=== PATIENT | female | born 1945 ===

== ENCOUNTER 2021-09-21 07:30 | Inpatient (IN) ==
[~2021-09-21 07:30] MED LIST: Buffered Lidocaine 1% SYRIN 1 ml INTRADERM ONE; Famotidine IV 10 MG/ML 2 ml VIAL (20 mg) IV ONE; Lactated Ringers 1000 ml BAG 1,000 ML IV SCH
[2021-10-31] MEDS ORDERED: ceFAZolin 1 GM ADVAN 1 GM ADDV.VIAL IVPB ONE (07:07)
[2021-10-31] MEDS ORDERED: Lidocaine 2.5%/Prilocain 2.5% 5 GM TUBE ONE (07:08)
[2021-10-31] MEDS ORDERED: Midazolam 2 mg/2 ml VIAL 1 mg/ml 2 ml VIAL (2 mg) ONE (09:09)
[2021-10-31] MEDS ORDERED: fentaNYL 250 mcg/5 ml 50 MCG/ML 5 ml VIAL (250 MCG) ONE (09:10)
[2021-10-31] MEDS ORDERED: Rocuronium 50 mg VIAL 10 mg/ml 5 ml VIAL (50 mg) ONE (09:10)
[2021-10-31] MEDS ORDERED: Lidocaine 2% PF 5 ML VIAL ONE (09:10)
[2021-10-31] MEDS ORDERED: Propofol 10 MG/ML 20 ML BTL ONE (09:10)
[2021-10-31] MEDS ORDERED: Heparin 5000 UNITS/ML 1 mL VIAL ONE (10:01)
[2021-10-31] MEDS ORDERED: Bupivacaine 0.5% SDV PF 30ML VIAL ONE ×2 (10:25→10:49)
[2021-10-31] MEDS ORDERED: Albuterol 2.5mg/3 ml (0.083%) NEB.SOLN INH ONE ×2 (10:37→10:53)
[2021-10-31] MEDS ORDERED: ISOSULFAN BLUE 1% 5 ML VIAL 10 MG/ML SUBCUT ONE (10:49)
[2021-10-31] MEDS ORDERED: HYDROmorphone 0.5 MG/0.5 ML SYRINGE ONE (12:34)
[2021-10-31] MEDS ORDERED: fentaNYL 100 mcg/2 ml 50 MCG/ML VIAL IV PRN (13:46)
[2021-10-31] MEDS ORDERED: Acetaminophen IV 1 GM/100ML 100 ML IV ONE (13:46)
[2021-10-31] MEDS ORDERED: oxyCODONE/Acetamin 5/325 mg TAB PO PRN (13:46)
[2021-10-31] MEDS ORDERED: Ondansetron 4 mg VIAL 2 MG/ML 2 ml VIAL IV PRN (13:46)
[2021-10-31] MEDS ORDERED: Albuterol HFA INHALER 8 gm MDI INH PRN (15:17)
[2021-10-31] MEDS ORDERED: HYDROcodone/ACETAMIN 5/325 mg TAB PO PRN (15:27)
[2021-10-31] MEDS ORDERED: Benzocaine/Menthol LOZ PO PRN (15:28)
[2021-10-31] MEDS ORDERED: ceFAZolin 2 GM in NS PREMIX 2 GM/100 ML BAG IVPB SCH (17:00)
[2021-10-31] MEDS ORDERED: Scopolamine 1 mg/72hr PATCH TRANSDERM SCH (17:30)
[2021-10-31] MEDS: ceFAZolin 2 GM PREMIX 2 GM/50 ML BAG IVPB SCH (17:53)
[2021-10-31] MEDS: DULoxetine DR 20 mg CAP PO SCH (21:40)
[2021-10-31] MEDS: Heparin 5000 UNITS/ML 1 mL VIAL SUBCUT SCH (21:41)
[2021-11-01] MEDS: ceFAZolin 2 GM PREMIX 2 GM/50 ML BAG IVPB SCH ×2 (01:27→10:07)
[2021-11-01] MEDS: Heparin 5000 UNITS/ML 1 mL VIAL SUBCUT SCH ×2 (05:59→13:26)
[2021-11-01] MEDS ORDERED: Tiotropium Brom/Olodaterol MDI INH SCH (09:00)
[2021-11-01] MEDS: DULoxetine DR 20 mg CAP PO SCH (10:01)
[2021-11-01 10:58] VITALS: BP 118/56
[2021-11-03] MEDS ORDERED: Scopolamine PATCH Remove NOTE PATCH OFF SCH (17:29)
== END 2021-11-01 16:00 | disposition home or self-care (01) | DRG 581 ==
LOC: AA 10-31 06:51 → SSU 10-31 16:50
PROVIDERS: ADMIT Student in an Organized Health Care Education/Training Program; ATTEND Student in an Organized Health Care Education/Training Program

== ENCOUNTER 2023-02-07 19:21 | Inpatient (IN) ==
[2023-02-07 20:06] LABS: Hematocrit 44.2 % (35-45); Hemoglobin 15.2 g/dL (11.5-14.3); Mean Corpuscular Hemoglobin 31.6 pg (27-33); Mean Corpuscular Hgb Conc 34.4 g/dL (31-36); Mean Corpuscular Volume 92.1 fL (80-97); Mean Platelet Volume 6.9 fL (7.5-11.2); Platelet Count 354 10^3/uL (150-450); Red Cell Distribution Width 13.7 % (12-17); White Blood Count 8.8 10^3/uL (3.8-11.8)
[2023-02-07 20:48] LABS: Albumin 2.8 g/dL (3.2-5.2); Albumin/Globulin Ratio 1.5 (1-3); Calcium 8.6 mg/dL (8.6-10.3); Creatinine, Serum 0.54 mg/dL (0.51-0.95); Globulin 1.9 g/dL (2-4); Magnesium 1.6 mg/dL (1.9-2.7); Phosphorus 1.6 mg/dL (2.5-5.0); Potassium 4.8 mmol/L (3.5-5.0); Total Bilirubin 0.8 mg/dL (0.2-1.0); Total Protein 4.7 g/dL (6.4-8.9); eGFR CKD-EPI 95.4 (>60)
[2023-02-07 20:54] LABS: Osmolality Serum 245 mOsm/kg (275-295)
[2023-02-07] MEDS ORDERED: Albuterol HFA INHALER 8 gm MDI INH PRN (21:05)
[2023-02-07 21:08] LABS: ABS Eosinophils 0.2 10^3/uL (0.0-0.5); ABS Lymphocytes 0.9 10^3/uL (1.0-4.8); ABS Monocytes 0.9 10^3/uL (0.0-0.9); ABS Neutrophils 6.9 10^3/uL (1.5-7.6); ABS Nucleated RBC 0.01 10^3/ul; Eosinophil % 2.1 %; Lymphocyte % 9.8 %; Nucleated Red Blood Cells % 0.1 /100 WBC (0.0-0.4); RBC Morphology Normal (Normal)
[2023-02-07] MEDS ORDERED: Magnesium Sulfate 2 gm BAG 2 GM/50 ML BAG IVPB ONE (21:17)
[2023-02-07] MEDS ORDERED: NS 0.9% IV ONE (21:17)
[2023-02-07] MEDS ORDERED: SODIUM PHOSPHATE IV ONE (21:17)
[2023-02-07] MEDS: Enoxaparin 40 MG/0.4 ML SYR SUBCUT SCH (21:38)
[2023-02-08 00:35] LABS: Urine Osmo 538 mOsm/kg (150-1150)
[2023-02-08 01:32] LABS: TSH Ultra Thyroid Stim Horm 1.44 mcIU/mL (0.34-5.60)
[2023-02-08] MEDS: Lactulose 30 ml UDC PO SCH ×2 (01:54→09:15)
[2023-02-08] MEDS ORDERED: D5W 1000 ml BAG 1,000 ML IV SCH ×2 (02:00)
[2023-02-08 04:30] LABS: ABS Eosinophils 0.2 10^3/uL (0.0-0.5); ABS Lymphocytes 0.9 10^3/uL (1.0-4.8); ABS Monocytes 0.9 10^3/uL (0.0-0.9); ABS Neutrophils 8.8 10^3/uL (1.5-7.6); ABS Nucleated RBC 0.01 10^3/ul; Eosinophil % 1.7 %; Hematocrit 41.2 % (35-45); Hemoglobin 14.4 g/dL (11.5-14.3); Lymphocyte % 8.5 %; Mean Corpuscular Hemoglobin 31.6 pg (27-33); Mean Corpuscular Volume 90.2 fL (80-97); Mean Platelet Volume 6.9 fL (7.5-11.2); Nucleated Red Blood Cells % 0.1 /100 WBC (0.0-0.4); Platelet Count 346 10^3/uL (150-450); Red Blood Count 4.56 10^6/uL (3.63-4.92); Red Cell Distribution Width 13.7 % (12-17); White Blood Count 10.9 10^3/uL (3.8-11.8)
[2023-02-08 04:59] LABS: Calcium 8.1 mg/dL (8.6-10.3); Potassium 4.5 mmol/L (3.5-5.0)
[2023-02-08 05:05] LABS: Creatinine, Serum 0.47 mg/dL (0.51-0.95); eGFR CKD-EPI 98.6 (>60)
[2023-02-08] MEDS ORDERED: SODIUM CHLORIDE 3% IV ONE ×2 (07:00→12:45)
[2023-02-08] MEDS ORDERED: HYPERTONIC IV ONE ×2 (07:00→12:45)
[2023-02-08 08:33] LABS: Urine Appearance Cloudy; Urine Bilirubin Negative (Negative); Urine Blood Negative (Negative); Urine Color Yellow; Urine Glucose Negative (Negative); Urine Ketones Trace (Negative); Urine Nitrite Negative (Negative); Urine Protein Negative (Negative); Urine Specific Gravity 1.011 (1.002-1.030); Urine Urobilinogen Negative (Negative)
[2023-02-08] MEDS: DULoxetine DR 20 mg CAP PO SCH ×2 (08:56→20:07)
[2023-02-08 09:00] LABS: Urine Creatinine Concentration 46.78 mg/dL (20.00-320.00); Urine Potassium Concentration 36.8 mmol/L
[2023-02-08] MEDS ORDERED: Tiotropium Brom/Olodaterol MDI (ACUTE) INH SCH (09:00)
[2023-02-08] MEDS: CMCS: Letrozole 2.5 MG TAB (NF) PO SCH ×2 (09:15→09:52)
[2023-02-08] MEDS ORDERED: FLUTICAS/UMECLI/VILANT 100-62.5-25 MDI (NF) INH SCH (09:45)
[2023-02-08] MEDS ORDERED: Lidocaine 1% MPF 5 ML VIAL INJ ONE (12:15)
[2023-02-08] MEDS ORDERED: Sodium Chloride 3% HYPERTONIC 180 ML IV SCH (18:10)
[2023-02-08] MEDS: Enoxaparin 40 MG/0.4 ML SYR SUBCUT SCH (21:08)
[2023-02-09 05:49] LABS: ABS Basophils 0.1 10^3/uL (0.0-0.1); ABS Eosinophils 0.2 10^3/uL (0.0-0.5); ABS Lymphocytes 0.9 10^3/uL (1.0-4.8); ABS Monocytes 0.7 10^3/uL (0.0-0.9); ABS Neutrophils 8.6 10^3/uL (1.5-7.6); ABS Nucleated RBC 0.01 10^3/ul; Eosinophil % 1.5 %; Hematocrit 42.3 % (35-45); Hemoglobin 14.8 g/dL (11.5-14.3); Mean Corpuscular Hemoglobin 31.7 pg (27-33); Mean Corpuscular Volume 90.5 fL (80-97); Nucleated Red Blood Cells % 0.1 /100 WBC (0.0-0.4); Platelet Count 363 10^3/uL (150-450); Red Blood Count 4.68 10^6/uL (3.63-4.92); Red Cell Distribution Width 13.5 % (12-17); White Blood Count 10.4 10^3/uL (3.8-11.8)
[2023-02-09 06:37] LABS: Calcium 8.2 mg/dL (8.6-10.3); Creatinine, Serum 0.45 mg/dL (0.51-0.95); Potassium 4.1 mmol/L (3.5-5.0); eGFR CKD-EPI 99.6 (>60)
[2023-02-09 07:05] LABS: Urine Osmo 405 mOsm/kg (150-1150)
[2023-02-09] MEDS: DULoxetine DR 20 mg CAP PO SCH (08:04)
[2023-02-09] MEDS ORDERED: Sodium Chloride 3% HYPERTONIC 210 ML IV ONE (08:15)
[2023-02-09] MEDS ORDERED: SODIUM CHLORIDE 3% IV ONE ×4 (08:15→19:39)
[2023-02-09] MEDS ORDERED: HYPERTONIC IV ONE ×4 (08:15→19:39)
[2023-02-09] MEDS ORDERED: Ure-Na 15 GM POWD.PACK PO SCH (09:00)
[2023-02-09] MEDS ORDERED: CMCS: Letrozole 2.5 MG TAB (NF) PO SCH (09:00)
[2023-02-09] MEDS: HYPERTONIC IV ONE ×2 (14:51→14:53)
[2023-02-09] MEDS: SODIUM CHLORIDE 3% IV ONE ×2 (14:51→14:53)
[2023-02-09] MEDS ORDERED: Dextrose 50% VIAL 50 ml IV PRN (20:15)
[2023-02-09 21:51] LABS: Potassium 3.9 mmol/L (3.5-5.0)
[2023-02-09] MEDS ORDERED: Potassium Chlor 20 meq TAB.ER PO ONE (22:34)
[2023-02-09] MEDS: Enoxaparin 40 MG/0.4 ML SYR SUBCUT SCH (23:08)
[2023-02-10 05:22] LABS: ABS Eosinophils 0.3 10^3/uL (0.0-0.5); ABS Lymphocytes 1.1 10^3/uL (1.0-4.8); ABS Monocytes 0.6 10^3/uL (0.0-0.9); ABS Neutrophils 5.1 10^3/uL (1.5-7.6); ABS Nucleated RBC 0.01 10^3/ul; Eosinophil % 4.3 %; Hematocrit 40.6 % (35-45); Hemoglobin 14.1 g/dL (11.5-14.3); Lymphocyte % 15.4 %; Mean Corpuscular Hemoglobin 31.4 pg (27-33); Mean Corpuscular Hgb Conc 34.7 g/dL (31-36); Mean Corpuscular Volume 90.5 fL (80-97); Mean Platelet Volume 7.3 fL (7.5-11.2); Nucleated Red Blood Cells % 0.1 /100 WBC (0.0-0.4); Platelet Count 336 10^3/uL (150-450); Red Blood Count 4.49 10^6/uL (3.63-4.92); Red Cell Distribution Width 13.7 % (12-17); White Blood Count 7.1 10^3/uL (3.8-11.8)
[2023-02-10 06:37] LABS: Calcium 8.3 mg/dL (8.6-10.3); Creatinine, Serum 0.48 mg/dL (0.51-0.95); Magnesium 1.8 mg/dL (1.9-2.7); Potassium 4.3 mmol/L (3.5-5.0); eGFR CKD-EPI 98.1 (>60)
[2023-02-10] MEDS: CMCS:Letrozole 2.5 MG TAB (NF) PO SCH (08:11)
[2023-02-10] MEDS: Ure-Na 15 GM POWD.PACK PO SCH (08:12)
[2023-02-10] MEDS ORDERED: Senna TAB 8.6 mg TAB PO PRN (09:24)
[2023-02-10] MEDS ORDERED: hydrALAZINE 20 mg/ml 1 ML Vial IV IV SLOW PU PRN (11:23)
[2023-02-10] MEDS: Multivitamins/Minerals TAB PO SCH (11:33)
[2023-02-10] MEDS: Albuterol/Ipratropium NEB.SOL (2.5/0.5 MG) 3 ML NEB.SOLN INH SCH ×4 (11:46→23:24)
[2023-02-10] MEDS ORDERED: Furosemide 20 mg/2 ml IV VIAL IV SLOW PU ONE (11:50)
[2023-02-10] MEDS: Enoxaparin 40 MG/0.4 ML SYR SUBCUT SCH (20:00)
[2023-02-11] MEDS: Albuterol/Ipratropium NEB.SOL (2.5/0.5 MG) 3 ML NEB.SOLN INH SCH ×2 (03:29→06:56)
[2023-02-11] MEDS ORDERED: Albuterol/Ipratropium NEB.SOL (2.5/0.5 MG) 3 ML NEB.SOLN INH PRN (07:09)
[2023-02-11 07:24] LABS: Calcium 9.2 mg/dL (8.6-10.3); Creatinine, Serum 0.55 mg/dL (0.51-0.95); Potassium 4.2 mmol/L (3.5-5.0); eGFR CKD-EPI 94.9 (>60)
[2023-02-11 07:31] LABS: ABS Basophils 0.1 10^3/uL (0.0-0.1); ABS Eosinophils 0.4 10^3/uL (0.0-0.5); ABS Lymphocytes 1.1 10^3/uL (1.0-4.8); ABS Monocytes 0.8 10^3/uL (0.0-0.9); ABS Neutrophils 5.8 10^3/uL (1.5-7.6); Eosinophil % 4.8 %; Hematocrit 40.4 % (35-45); Hemoglobin 13.9 g/dL (11.5-14.3); Lymphocyte % 13.4 %; Mean Corpuscular Hemoglobin 31.3 pg (27-33); Mean Corpuscular Hgb Conc 34.5 g/dL (31-36); Mean Corpuscular Volume 90.8 fL (80-97); Mean Platelet Volume 7.2 fL (7.5-11.2); Platelet Count 355 10^3/uL (150-450); Red Blood Count 4.46 10^6/uL (3.63-4.92); White Blood Count 8.1 10^3/uL (3.8-11.8)
[2023-02-11] MEDS: Albuterol HFA INHALER 8 gm MDI INH SCH ×4 (10:59→23:03)
[2023-02-11] MEDS: Multivitamins/Minerals TAB PO SCH (11:10)
[2023-02-11] MEDS: Ure-Na 15 GM POWD.PACK PO SCH (11:11)
[2023-02-11] MEDS: CMCS:Letrozole 2.5 MG TAB (NF) PO SCH (11:11)
[2023-02-11] MEDS: Enoxaparin 40 MG/0.4 ML SYR SUBCUT SCH (22:38)
[2023-02-12] MEDS: Albuterol HFA INHALER 8 gm MDI INH SCH ×5 (03:12→19:11)
[2023-02-12 05:53] LABS: ABS Basophils 0.1 10^3/uL (0.0-0.1); ABS Eosinophils 0.5 10^3/uL (0.0-0.5); ABS Lymphocytes 1.4 10^3/uL (1.0-4.8); ABS Monocytes 0.9 10^3/uL (0.0-0.9); ABS Neutrophils 6.7 10^3/uL (1.5-7.6); Eosinophil % 5.4 %; Hematocrit 39.8 % (35-45); Hemoglobin 13.6 g/dL (11.5-14.3); Lymphocyte % 14.4 %; Mean Corpuscular Hemoglobin 31.4 pg (27-33); Mean Corpuscular Hgb Conc 34.1 g/dL (31-36); Mean Corpuscular Volume 92.1 fL (80-97); Mean Platelet Volume 7.6 fL (7.5-11.2); Platelet Count 355 10^3/uL (150-450); Red Blood Count 4.31 10^6/uL (3.63-4.92); Red Cell Distribution Width 14.2 % (12-17); White Blood Count 9.5 10^3/uL (3.8-11.8)
[2023-02-12 06:10] LABS: CO2 Carbon Dioxide 39 mmol/L (22-32); Calcium 9.4 mg/dL (8.6-10.3); Chloride 96 mmol/L (101-111); Magnesium 1.8 mg/dL (1.9-2.7); Sodium 134 mmol/L (135-145)
[2023-02-12 06:15] LABS: Blood Urea Nitrogen 28 mg/dL (6-24); Creatinine, Serum 0.59 mg/dL (0.51-0.95); Glucose 79 mg/dL (70-100); eGFR CKD-EPI 93.3 (>60)
[2023-02-12] MEDS: SPIRIVA Respimat (tiotropium) 2.5 mcg/inh Inhaler INH SCH (07:28)
[2023-02-12] MEDS: CMCS:Letrozole 2.5 MG TAB (NF) PO SCH (08:33)
[2023-02-12] MEDS: Multivitamins/Minerals TAB PO SCH (08:34)
[2023-02-12] MEDS: Ure-Na 15 GM POWD.PACK PO SCH (08:35)
[2023-02-12] MEDS: Enoxaparin 40 MG/0.4 ML SYR SUBCUT SCH (22:10)
[2023-02-13] MEDS: Albuterol HFA INHALER 8 gm MDI INH SCH ×4 (00:39→11:12)
[2023-02-13 06:53] LABS: Calcium 9.7 mg/dL (8.6-10.3); Creatinine, Serum 0.57 mg/dL (0.51-0.95); eGFR CKD-EPI 94.1 (>60)
[2023-02-13] MEDS: SPIRIVA Respimat (tiotropium) 2.5 mcg/inh Inhaler INH SCH (07:14)
[2023-02-13] MEDS: Multivitamins/Minerals TAB PO SCH (10:29)
[2023-02-13] MEDS: CMCS:Letrozole 2.5 MG TAB (NF) PO SCH (10:32)
[2023-02-13] MEDS ORDERED: Albuterol HFA INHALER 8 gm MDI INH PRN (11:17)
[2023-02-13 15:40] VITALS: BP 187/98
== END 2023-02-13 17:20 | disposition home or self-care (01) | DRG 643 ==
LOC: SUATTDRO 19:21 → ICU 19:21 → MEDTELE 02-10 16:36
PROVIDERS: ADMIT Internal Medicine Critical Care Medicine; ATTEND Internal Medicine